=== PATIENT | male | born 2000 | race African-American/Black ===

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

== ENCOUNTER 2018-04-04 21:19 | Emergency (ER) | payer MEDICAID ==
[~2018-04-04] VITALS: Ht 193 cm; Wt 82.0 kg
[2018-04-04 21:48] VITALS: BP 118/75
== END 2018-04-05 00:42 | disposition left against medical advice (07) ==
LOC: ER 23:55
DX: Z53.21 Procedure and treatment not carried out due to patient leaving prior to being seen by health care provider (principal); R07.89 Other chest pain
CPT/HCPCS: 93005